=== PATIENT | male | born 1975 | race Caucasian/White ===

== ENCOUNTER 2020-03-27 11:06 | Emergency (ER) | payer MEDICAID ==
[~2020-03-27] VITALS: Ht 175.3 cm; Wt 90.9 kg
[~2020-03-27 11:06] MED LIST: ONDA4TAB6 PO
[2020-03-27] MEDS ORDERED: METH4TAB81 PO (12:02)
[2020-03-27] MEDS ORDERED: AMOX500C2 PO (12:02)
== END 2020-03-27 12:32 | disposition home or self-care (01) ==
LOC: ER 11:07
DX: R05 Cough (principal); Z20.822 Contact with and (suspected) exposure to COVID-19; H92.02 Otalgia, left ear; F12.90 Cannabis use, unspecified, uncomplicated; Z60.2 Problems related to living alone; Z98.890 Other specified postprocedural states; Z88.1 Allergy status to other antibiotic agents; Z79.899 Other long term (current) drug therapy
CPT/HCPCS: 36415; 87635; 99283